=== PATIENT | female | born 1955 | race Two or more races ===

== ENCOUNTER 2018-10-16 15:18 | Inpatient (IN) | payer MEDICARE, MEDICAID ==
[~2018-10-16] VITALS: Ht 149.9 cm; Wt 62.6 kg
[2018-10-16] MEDS ORDERED: ONDANSETRON HCL 4MG/2ML INJ IV STA (15:43)
[2018-10-16] MEDS ORDERED: SODIUM CHLORIDE 0.9% 1,000 ML IV ONE (15:43)
[2018-10-16 16:32] LABS: CHLORIDE 90 mEq/L (98-107)
[2018-10-16 16:33] LABS: BASOPHILS % 0.9 % (0.0-2.0); EOSINOPHILS % 0.3 % (0.0-5.0); HEMATOCRIT. 35.6 % (36.0-48.0); LYMPHOCYTES % 16.4 % (20.0-50.0); MEAN CORPUSCULAR HEMOGLOBIN 27.9 pg (28.0-32.0); MEAN PLATELET VOLUME 9.5 fl (7.4-10.4); MONOCYTES % 5.7 % (2.0-8.0); NEUTROPHILS % 76.7 % (40.0-76.0); PLATELET 300 x1000/uL (130-400); RED BLOOD CELL COUNT 4.29 mill/uL (4.2-5.4); RED CELL DISTRIBUTION WIDTH 13.5 % (11.6-14.6)
[2018-10-16 16:36] LABS: ETHANOL BLOOD < 10 mg/dL
[2018-10-16] MEDS ORDERED: CEFTRIAXONE 1,000 MG in DEXTROSE 5% WATER 50 ML IV SCH (18:00)
[2018-10-16 18:09] LABS: CLARITY URINE TURBID (CLEAR); COLOR URINE YELLOW (YELLOW); KETONES URINE 1+ (NEGATIVE); LEUKOCYTE ESTERASE URINE 3+ (NEGATIVE); NITRITE URINE NEGATIVE (NEGATIVE); OCCULT BLOOD URINE 3+ (NEGATIVE); PROTEIN URINE 2+ (NEGATIVE); SPECIFIC GRAVITY URINE 1.016 (1.005-1.030); UROBILINOGEN URINE 0.2 E.U./dL (0.2-1.0)
[2018-10-16] MEDS ORDERED: LABETALOL 5MG/ML SYR 20 MG/4 ML SYRINGE IV ONE (18:15)
[2018-10-16 18:25] LABS: *AMPHETAMINES SCREEN URINE NEGATIVE (NEGATIVE)
[2018-10-16 18:26] LABS: *BARBITURATES SCREEN URINE NEGATIVE (NEGATIVE); *BENZODIAZEPINES SCREEN URINE NEGATIVE (NEGATIVE); *COCAINE SCREEN URINE NEGATIVE (NEGATIVE); METHADONE URINE SCREEN NEGATIVE (NEGATIVE); OPIATES URINE SCREEN NEGATIVE (NEGATIVE); PHENCYCLIDINE URINE SCREEN NEGATIVE (NEGATIVE)
[2018-10-16 18:27] LABS: CANNABINOID URINE SCREEN NEGATIVE (NEGATIVE)
[2018-10-16] MEDS ORDERED: CEFTRIAXONE 1 G PREMIX 50 ML IV ONE (18:30)
[2018-10-16] MEDS ORDERED: HYDROCODONE/ACETAMINOPHEN 5/325MG TABLET PO PRN (20:45)
[2018-10-16] MEDS ORDERED: ACETAMINOPHEN 325MG TABLET PO PRN (20:45)
[2018-10-16] MEDS ORDERED: ONDANSETRON HCL 4MG/2ML INJ IV PRN (20:45)
[2018-10-16] MEDS ORDERED: IPRATROPIUM/ALBUTEROL 0.5-3(2.5)MG/3ML NEB INH PRN (20:45)
[2018-10-16] MEDS ORDERED: DOCUSATE SODIUM 100MG CAPSULE PO PRN (20:45)
[2018-10-16] MEDS ORDERED: LORAZEPAM 0.5MG TABLET PO PRN (20:45)
[2018-10-16 21:17] LABS: LDL CHOLESTEROL 67 mg/dL (5-100)
[2018-10-16 21:19] LABS: CREATINE KINASE 26 IU/L (26-192); HDL CHOLESTEROL 27 mg/dL (40-59)
[2018-10-16 21:20] LABS: CREATINE KINASE MB FRACTION < 1.0 ng/mL (0.5-3.6)
[2018-10-16] MEDS: CLONIDINE 0.1MG TABLET PO PRN (23:12)
[2018-10-17] VITALS (7 sets, daily range): BP systolic 124–161; BP diastolic 50–66
[2018-10-17] MEDS ORDERED: DEXTROSE 50% WATER 50ML SYRINGE IV PRN
[2018-10-17] MEDS: BLOOD SUGAR DIAGNOSTIC STRIP TEST SCH ×5 (00:11→21:09)
[2018-10-17] MEDS: INSULIN LISPRO 100 UNITS/ML SUBCUT SCH ×5 (00:11→21:11)
[2018-10-17] MEDS: AMLODIPINE 5MG TABLET PO SCH (09:07)
[2018-10-17 09:31] LABS: BASOPHILS % 0.8 % (0.0-2.0); EOSINOPHILS % 0.8 % (0.0-5.0); HEMATOCRIT. 36.8 % (36.0-48.0); HEMOGLOBIN. 12.1 g/dL (12.0-16.0); LYMPHOCYTES % 16.5 % (20.0-50.0); MEAN CORPUSCULAR HEMOGLOBIN 28.1 pg (28.0-32.0); MEAN CORPUSCULAR VOLUME 85.3 fL (81.0-99.0); MEAN PLATELET VOLUME 9.6 fl (7.4-10.4); MONOCYTES % 6.8 % (2.0-8.0); NEUTROPHILS % 75.1 % (40.0-76.0); PLATELET 259 x1000/uL (130-400); RED BLOOD CELL COUNT 4.31 mill/uL (4.2-5.4); RED CELL DISTRIBUTION WIDTH 13.6 % (11.6-14.6)
[2018-10-17 09:41] LABS: CHLORIDE 96 mEq/L (98-107)
[2018-10-17 09:48] LABS: PHOSPHORUS 2.5 mg/dL (2.5-4.9)
[2018-10-17] MEDS: CLONIDINE 0.1MG TABLET PO PRN (12:43)
[2018-10-17] MEDS: ENOXAPARIN 40MG/0.4ML SYR SUBCUT SCH (16:58)
[2018-10-17] MEDS: CEFTRIAXONE 1,000 MG in DEXTROSE 5% WATER 50 ML IV SCH (17:23)
[2018-10-17] MEDS ORDERED: CEFTRIAXONE 1 G PREMIX 50 ML IV SCH (18:00)
[2018-10-17] MEDS ORDERED: POTASSIUM CHLORIDE 20MEQ TABLET SR PO SCH (20:00)
[2018-10-17] MEDS: ATORVASTATIN CALCIUM 20MG TABLET PO SCH (20:52)
[2018-10-18] VITALS: BP 140/58
[2018-10-18 04:00] VITALS: BP 140/57
[2018-10-18] MEDS: BLOOD SUGAR DIAGNOSTIC STRIP TEST SCH ×4 (06:23→21:41)
[2018-10-18] MEDS: INSULIN LISPRO 100 UNITS/ML SUBCUT SCH ×4 (06:27→22:19)
[2018-10-18 08:00] VITALS: BP 118/52
[2018-10-18] MEDS: AMLODIPINE 5MG TABLET PO SCH (09:57)
[2018-10-18 12:00] VITALS: BP 137/47
[2018-10-18] MEDS ORDERED: INSULIN LISPRO 100 UNITS/ML SUBCUT NR (12:49)
[2018-10-18] MEDS: ENOXAPARIN 40MG/0.4ML SYR SUBCUT SCH (13:04)
[2018-10-18 16:00] VITALS: BP 141/61
[2018-10-18] MEDS: NYSTATIN POWDER 15GM TOP SCH (17:37)
[2018-10-18] MEDS: CEFTRIAXONE 1,000 MG in DEXTROSE 5% WATER 50 ML IV SCH (17:37)
[2018-10-18 20:00] VITALS: BP 139/64
[2018-10-18] MEDS: ATORVASTATIN CALCIUM 20MG TABLET PO SCH (21:44)
[2018-10-19] VITALS: BP 148/71
[2018-10-19 04:00] VITALS: BP 162/67
[2018-10-19] MEDS: CLONIDINE 0.1MG TABLET PO PRN (04:19)
[2018-10-19] MEDS: BLOOD SUGAR DIAGNOSTIC STRIP TEST SCH ×4 (05:37→21:00)
[2018-10-19] MEDS: INSULIN LISPRO 100 UNITS/ML SUBCUT SCH ×4 (06:07→21:34)
[2018-10-19 07:57] LABS: BASOPHILS % 1.4 % (0.0-2.0); EOSINOPHILS % 1.7 % (0.0-5.0); HEMATOCRIT. 34.6 % (36.0-48.0); HEMOGLOBIN. 11.5 g/dL (12.0-16.0); LYMPHOCYTES % 34.6 % (20.0-50.0); MEAN CORPUSCULAR VOLUME 84.1 fL (81.0-99.0); MEAN PLATELET VOLUME 9.8 fl (7.4-10.4); MONOCYTES % 6.7 % (2.0-8.0); NEUTROPHILS % 55.6 % (40.0-76.0); PLATELET 291 x1000/uL (130-400); RED BLOOD CELL COUNT 4.11 mill/uL (4.2-5.4); RED CELL DISTRIBUTION WIDTH 13.9 % (11.6-14.6)
[2018-10-19 08:00] VITALS: BP 125/57
[2018-10-19 08:13] LABS: CHLORIDE 100 mEq/L (98-107)
[2018-10-19] MEDS: AMLODIPINE 5MG TABLET PO SCH (08:55)
[2018-10-19] MEDS: NYSTATIN POWDER 15GM TOP SCH ×2 (08:56→17:20)
[2018-10-19 10:10] LABS: HIV SCREEN 4G Non Reactive (Non Reactive)
[2018-10-19 11:53] VITALS: BP 150/63
[2018-10-19] MEDS: ENOXAPARIN 40MG/0.4ML SYR SUBCUT SCH (14:34)
[2018-10-19 16:00] VITALS: BP 140/69
[2018-10-19] MEDS: CEFTRIAXONE 1,000 MG in DEXTROSE 5% WATER 50 ML IV SCH (17:19)
[2018-10-19 20:43] VITALS: BP 155/71
[2018-10-19] MEDS: ATORVASTATIN CALCIUM 20MG TABLET PO SCH (21:32)
[2018-10-20 00:51] VITALS: BP 147/66
[2018-10-20 04:00] VITALS: BP 137/60
[2018-10-20] MEDS: INSULIN LISPRO 100 UNITS/ML SUBCUT SCH ×4 (06:25→23:12)
[2018-10-20 07:05] LABS: CHLORIDE 101 mEq/L (98-107)
[2018-10-20 07:28] LABS: BASOPHILS % 1.4 % (0.0-2.0); HEMATOCRIT. 35.6 % (36.0-48.0); HEMOGLOBIN. 11.7 g/dL (12.0-16.0); LYMPHOCYTES % 30.1 % (20.0-50.0); MEAN CORPUSCULAR HEMOGLOBIN 27.7 pg (28.0-32.0); MEAN CORPUSCULAR VOLUME 84.3 fL (81.0-99.0); MEAN PLATELET VOLUME 10.3 fl (7.4-10.4); NEUTROPHILS % 58.5 % (40.0-76.0); PLATELET 317 x1000/uL (130-400); RED BLOOD CELL COUNT 4.22 mill/uL (4.2-5.4); RED CELL DISTRIBUTION WIDTH 13.9 % (11.6-14.6)
[2018-10-20 08:44] VITALS: BP 144/68
[2018-10-20] MEDS: AMLODIPINE 5MG TABLET PO SCH (09:09)
[2018-10-20] MEDS: NYSTATIN POWDER 15GM TOP SCH ×2 (09:10→17:10)
[2018-10-20] MEDS ORDERED: MECLIZINE 12.5MG TABLET PO NR (11:15)
[2018-10-20] MEDS: BLOOD SUGAR DIAGNOSTIC STRIP TEST SCH ×3 (11:45→20:13)
[2018-10-20 12:10] VITALS: BP 148/54
[2018-10-20] MEDS: ENOXAPARIN 40MG/0.4ML SYR SUBCUT SCH (15:34)
[2018-10-20 16:00] VITALS: BP 150/60
[2018-10-20] MEDS: CEFTRIAXONE 1,000 MG in DEXTROSE 5% WATER 50 ML IV SCH (17:44)
[2018-10-20 20:13] VITALS: BP 164/68
[2018-10-20] MEDS: ATORVASTATIN CALCIUM 20MG TABLET PO SCH (21:27)
[2018-10-20] MEDS ORDERED: INSULIN LISPRO 100 UNITS/ML SUBCUT NR (22:29)
[2018-10-21 00:49] VITALS: BP 144/69
[2018-10-21 04:00] VITALS: BP 141/59
[2018-10-21 06:01] LABS: BASOPHILS % 1.7 % (0.0-2.0); EOSINOPHILS % 1.6 % (0.0-5.0); HEMATOCRIT. 34.9 % (36.0-48.0); HEMOGLOBIN. 11.4 g/dL (12.0-16.0); LYMPHOCYTES % 34.4 % (20.0-50.0); MEAN CORPUSCULAR HEMOGLOBIN 27.5 pg (28.0-32.0); MEAN CORPUSCULAR VOLUME 83.6 fL (81.0-99.0); MEAN PLATELET VOLUME 10.1 fl (7.4-10.4); MONOCYTES % 10.2 % (2.0-8.0); NEUTROPHILS % 52.1 % (40.0-76.0); PLATELET 312 x1000/uL (130-400); RED BLOOD CELL COUNT 4.17 mill/uL (4.2-5.4); RED CELL DISTRIBUTION WIDTH 13.6 % (11.6-14.6)
[2018-10-21 06:13] LABS: CHLORIDE 99 mEq/L (98-107)
[2018-10-21] MEDS: BLOOD SUGAR DIAGNOSTIC STRIP TEST SCH ×4 (06:30→21:00)
[2018-10-21] MEDS: INSULIN LISPRO 100 UNITS/ML SUBCUT SCH ×4 (07:02→21:00)
[2018-10-21 08:00] VITALS: BP 156/62
[2018-10-21] MEDS: NYSTATIN POWDER 15GM TOP SCH ×2 (08:40→18:05)
[2018-10-21] MEDS: AMLODIPINE 5MG TABLET PO SCH (08:40)
[2018-10-21 12:00] VITALS: BP 155/63
[2018-10-21] MEDS: ENOXAPARIN 40MG/0.4ML SYR SUBCUT SCH (14:03)
[2018-10-21 16:00] VITALS: BP 147/69
[2018-10-21] MEDS: CEFTRIAXONE 1,000 MG in DEXTROSE 5% WATER 50 ML IV SCH (18:07)
[2018-10-21 20:00] VITALS: BP 115/73
[2018-10-21] MEDS: MECLIZINE 25MG TABLET PO SCH (22:19)
[2018-10-21] MEDS: ATORVASTATIN CALCIUM 20MG TABLET PO SCH (22:19)
[2018-10-21] MEDS: INSULIN GLARGINE UD 100 UNITS/ML SYR SUBCUT SCH (22:25)
[2018-10-22] VITALS: BP 169/75
[2018-10-22 04:00] VITALS: BP 158/66
[2018-10-22] MEDS: BLOOD SUGAR DIAGNOSTIC STRIP TEST SCH ×2 (05:48→11:45)
[2018-10-22] MEDS: INSULIN LISPRO 100 UNITS/ML SUBCUT SCH ×2 (05:49→12:49)
[2018-10-22] MEDS: MECLIZINE 25MG TABLET PO SCH (05:54)
[2018-10-22 07:44] LABS: BASOPHILS % 1.9 % (0.0-2.0); CHLORIDE 100 mEq/L (98-107); EOSINOPHILS % 1.8 % (0.0-5.0); HEMATOCRIT. 32.6 % (36.0-48.0); HEMOGLOBIN. 10.6 g/dL (12.0-16.0); LYMPHOCYTES % 42.3 % (20.0-50.0); MEAN CORPUSCULAR HEMOGLOBIN 27.4 pg (28.0-32.0); MEAN CORPUSCULAR VOLUME 84.6 fL (81.0-99.0); MONOCYTES % 8.8 % (2.0-8.0); NEUTROPHILS % 45.2 % (40.0-76.0); PLATELET 287 x1000/uL (130-400); RED BLOOD CELL COUNT 3.85 mill/uL (4.2-5.4); RED CELL DISTRIBUTION WIDTH 13.7 % (11.6-14.6)
[2018-10-22 08:15] VITALS: BP 146/63
[2018-10-22] MEDS: AMLODIPINE 5MG TABLET PO SCH (09:02)
[2018-10-22] MEDS: NYSTATIN POWDER 15GM TOP SCH (09:02)
[2018-10-22] MEDS: INSULIN GLARGINE UD 100 UNITS/ML SYR SUBCUT SCH (11:38)
[2018-10-22 12:00] VITALS: BP 159/68
[2018-10-22] MEDS ORDERED: ATOR20TA PO (13:16)
[2018-10-22] MEDS ORDERED: AMLO5TAB88 PO (13:16)
== END 2018-10-22 15:30 | disposition home or self-care (01) | DRG 854 ==
LOC: ER 15:18 → 5WST 20:34 → ENRESERV 22:17 → EDBEDREQ 22:35 → EDBEDREQTM 22:35
PROVIDERS: ADMIT Internal Medicine; ATTEND Internal Medicine
PROC: 0JBQ0ZZ Excision of Right Foot Subcutaneous Tissue and Fascia, Open Approach (ICD-10-PCS; principal; 2018-10-18)
PROC: 0JDR0ZZ Extraction of Left Foot Subcutaneous Tissue and Fascia, Open Approach (ICD-10-PCS; 2018-10-18)
PROC: 0JDQ0ZZ Extraction of Right Foot Subcutaneous Tissue and Fascia, Open Approach (ICD-10-PCS; 2018-10-18)
DX: A41.51 Sepsis due to Escherichia coli [E. coli] (principal); N39.0 Urinary tract infection, site not specified; E87.1 Hypo-osmolality and hyponatremia; E46 Unspecified protein-calorie malnutrition; E11.65 Type 2 diabetes mellitus with hyperglycemia; E83.51 Hypocalcemia; E78.5 Hyperlipidemia, unspecified; I50.9 Heart failure, unspecified; I11.0 Hypertensive heart disease with heart failure; F32.9 Major depressive disorder, single episode, unspecified; L97.519 Non-pressure chronic ulcer of other part of right foot with unspecified severity; E66.01 Morbid (severe) obesity due to excess calories; E11.621 Type 2 diabetes mellitus with foot ulcer; L57.0 Actinic keratosis; H81.10 Benign paroxysmal vertigo, unspecified ear; Z68.27 Body mass index [BMI] 27.0-27.9, adult; Z71.3 Dietary counseling and surveillance; Z83.3 Family history of diabetes mellitus; Z80.3 Family history of malignant neoplasm of breast; Z79.84 Long term (current) use of oral hypoglycemic drugs
CPT/HCPCS: 36415; 70551; 71045; 78582; 80048; 80061; 80305; 80320; 82140; 82550; 82553; 82607; 82746; 82962; 83036; 83605; 83735; 83880; 84100; 84443; 84484; 85379; 87077; 87186; 87389; 93005; 93306; 93880; 93970; 96361; 96365; 96375; 97116; 97162; 99291; A9558; C1893; J0696; J1650; J1815; J2405; J3490; J7030; J7040; J7060; J8597; G0480

== ENCOUNTER 2023-01-03 09:33 | Inpatient (IN) | payer MEDICARE, MEDICAID ==
[~2023-01-03] VITALS: Ht 149.9 cm; Wt 59.0 kg
[~2023-01-03 09:33] MED LIST: AMLO5TAB88 PO; ASPI-1406 PO; ATOR20TA PO; CIPR-264 MT; INSU100I24 SUBCUT; ISOS1TAB2 PO; LETR2.5T7 PO; LIDO30CR TP; METO25TA6 PO
[2023-01-03 10:23] LABS: BASOPHILS % 2.4 % (0.0-2.0); EOSINOPHILS % 3.8 % (0.0-5.0); HEMATOCRIT. 29.9 % (36.0-48.0); HEMOGLOBIN. 9.8 g/dL (12.0-16.0); LYMPHOCYTES % 33.9 % (20.0-50.0); MEAN CORPUSCULAR HEMOGLOBIN 29.1 pg (28.0-32.0); MEAN CORPUSCULAR VOLUME 88.3 fL (81.0-99.0); MEAN PLATELET VOLUME 9.5 fl (7.4-10.4); MONOCYTES % 7.7 % (2.0-8.0); NEUTROPHILS % 52.2 % (40.0-76.0); PLATELET 236 x1000/uL (130-400); RED BLOOD CELL COUNT 3.38 mill/uL (4.2-5.4); RED CELL DISTRIBUTION WIDTH 16.1 % (11.6-14.6)
[2023-01-03 10:30] LABS: CHLORIDE 104 mEq/L (98-107)
[2023-01-03 10:35] LABS: INR 1.1; PARTIAL THROMBOPLASTIN TIME 27.1 sec (23.4-31.0); PROTHROMBIN TIME 11.9 sec (9.6-11.0)
[2023-01-03] MEDS ORDERED: FUROSEMIDE 40MG/4ML VIAL IVP NR (11:15)
[2023-01-03] MEDS ORDERED: ASPIRIN 325MG EC TABLET PO NR (11:15)
[2023-01-03] MEDS ORDERED: ACETAMINOPHEN 325MG TABLET PO PRN (14:30)
[2023-01-03] MEDS ORDERED: ONDANSETRON HCL 4MG/2ML INJ IV PRN (14:30)
[2023-01-03] MEDS: AMLODIPINE 5MG TABLET PO SCH (14:35)
[2023-01-03] MEDS ORDERED: FURO20TA4 PO (16:14)
[2023-01-03 16:16] VITALS: BP 187/77
[2023-01-03 17:00] VITALS: BP 166/55
[2023-01-03] MEDS ORDERED: CLONIDINE 0.1MG TABLET PO PRN (17:45)
[2023-01-03] MEDS ORDERED: DEXTROSE 50% WATER 50ML SYRINGE IV PRN (17:45)
[2023-01-03] MEDS: FUROSEMIDE 40MG/4ML VIAL IVP SCH (17:51)
[2023-01-03 19:58] LABS: HEPATITIS B SURFACE ANTIGEN NEGATIVE
[2023-01-03 20:00] VITALS: BP 105/63
[2023-01-03] MEDS: BLOOD SUGAR DIAGNOSTIC STRIP TEST SCH (21:00)
[2023-01-03] MEDS: HYDRALAZINE HCL 50MG TABLET PO SCH (21:19)
[2023-01-03] MEDS: INSULIN LISPRO 100 UNITS/ML SUBCUT SCH (21:19)
[2023-01-03] MEDS: INSULIN GLARGINE 100 UNITS/ML SUBCUT SCH (22:07)
[2023-01-04] VITALS: BP_SYST 131; BP_SYST 168; BP_SYST 176; BP_DIAS 55; BP_DIAS 70; BP_DIAS 74
[2023-01-04 04:00] VITALS: BP 152/59
[2023-01-04] MEDS: HYDRALAZINE HCL 50MG TABLET PO SCH ×2 (05:12→16:12)
[2023-01-04] MEDS: BLOOD SUGAR DIAGNOSTIC STRIP TEST SCH ×4 (06:16→20:29)
[2023-01-04] MEDS: INSULIN LISPRO 100 UNITS/ML SUBCUT SCH ×4 (06:16→20:29)
[2023-01-04 08:00] VITALS: BP 181/60
[2023-01-04] MEDS: AMLODIPINE 5MG TABLET PO SCH (09:23)
[2023-01-04] MEDS: FUROSEMIDE 40MG/4ML VIAL IVP SCH ×2 (09:23→17:25)
[2023-01-04] MEDS ORDERED: POTASSIUM CHLORIDE 20MEQ TABLET SR PO NR (10:15)
[2023-01-04] MEDS: INSULIN GLARGINE 100 UNITS/ML SUBCUT SCH ×2 (12:44→21:59)
[2023-01-04 16:00] VITALS: BP 159/79
[2023-01-04 20:00] VITALS: BP 147/67
[2023-01-04] MEDS: HYDRALAZINE HCL 100MG TABLET PO SCH (21:50)
[2023-01-05] VITALS: BP 152/56
[2023-01-05 04:00] VITALS: BP 155/46
[2023-01-05] MEDS: HYDRALAZINE HCL 100MG TABLET PO SCH ×2 (05:36→14:30)
[2023-01-05] MEDS: BLOOD SUGAR DIAGNOSTIC STRIP TEST SCH ×2 (06:06→11:40)
[2023-01-05] MEDS: INSULIN LISPRO 100 UNITS/ML SUBCUT SCH ×2 (06:42→12:42)
[2023-01-05 08:00] VITALS: BP 154/70
[2023-01-05] MEDS ORDERED: AMLODIPINE 10MG TABLET PO SCH (09:00)
[2023-01-05] MEDS: FUROSEMIDE 40MG/4ML VIAL IVP SCH (10:15)
[2023-01-05] MEDS: INSULIN GLARGINE 100 UNITS/ML SUBCUT SCH (10:19)
[2023-01-05] MEDS ORDERED: FURO-151 MT (13:44)
[2023-01-05 15:31] VITALS: BP 120/78
== END 2023-01-05 17:30 | disposition home or self-care (01) | DRG 291 ==
LOC: ER 09:33 → 7EST 12:51 → EDBEDREQ 12:58 → EDBEDREQTM 12:58
PROVIDERS: ADMIT Internal Medicine; ATTEND Internal Medicine
DX: I13.0 Hypertensive heart and chronic kidney disease with heart failure and stage 1 through stage 4 chronic kidney disease, or unspecified chronic kidney disease (principal); I50.23 Acute on chronic systolic (congestive) heart failure; N17.9 Acute kidney failure, unspecified; E44.1 Mild protein-calorie malnutrition; N18.4 Chronic kidney disease, stage 4 (severe); E11.65 Type 2 diabetes mellitus with hyperglycemia; D63.1 Anemia in chronic kidney disease; R74.01 Elevation of levels of liver transaminase levels; E11.22 Type 2 diabetes mellitus with diabetic chronic kidney disease; Z85.3 Personal history of malignant neoplasm of breast; Z79.4 Long term (current) use of insulin
CPT/HCPCS: 36415; 71045; 80048; 80053; 82962; 83036; 83605; 83880; 84484; 85025; 86803; 86850; 86900; 87340; 93005; 93306; 99285; J1815; J1940